=== PATIENT | female | born 1965 | race Two or more races ===

== ENCOUNTER 2023-07-27 12:55 | Inpatient (IN) | payer MEDICAID, OTHER ==
[~2023-07-27] VITALS: Ht 157.5 cm; Wt 87.6 kg
[2023-07-27] MEDS ORDERED: ASPirin 325 MG TAB PO ONE (13:15)
[2023-07-27 13:22] LABS: Basophils # (auto) 0.1 10 ^3/uL (0-0.2); Eosinophils # (auto) 0.8 10 ^3/uL (0-0.8); Eosinophils % (auto) 12.8 % (0.0-7.0); Hematocrit 37.3 % (36.0-46.0); Hemoglobin 12.5 g/dL (12.2-16.2); Lymphocytes # (auto) 1.9 10 ^3/uL (0.4-5.4); Lymphocytes % (auto) 28.6 % (10.0-50.0); Mean Corpuscular Hemoglobin 29.8 pg (28.0-32.0); Mean Corpuscular Hgb Conc. 33.6 g/dL (32.0-36.0); Mean Corpuscular Volume 88.7 fL (80.0-100.0); Monocytes # (auto) 0.4 10 ^3/uL (0-1.3); Monocytes % (auto) 6.1 % (0.0-12.0); Neutrophils # (auto) 3.3 10 ^3/uL (1.6-8.6); Neutrophils % (auto) 51.5 % (37.0-80.0); Red Cell Distribution Width 14.3 % (11.8-14.3); White Blood Cell 6.5 10^3/uL (4.4-10.8)
[2023-07-27 13:35] LABS: Alanine Aminotransferase 27 U/L (7-40); Alkaline Phosphatase 116 U/L (46-116); Anion Gap 8.2 (5-15); Aspartate Aminotransferase 12 U/L (13-40); Blood Urea Nitrogen 18 mg/dL (9-23); Calcium 9.3 mg/dL (8.5-10.1); Carbon Dioxide 21.8 mmol/L (20-30); Chloride 112 mmol/L (98-107); Glucose 108 mg/dL (74-106); Potassium 4.2 mmol/L (3.5-5.1); Sodium 142 mmol/L (136-145)
[2023-07-27 13:36] LABS: Albumin 4.4 g/dL (3.2-4.8); Bilirubin, Total 0.8 mg/dL (0.2-1.0); Total Protein 7.2 g/dL (5.7-8.2)
[2023-07-27] MEDS ORDERED: MORPHINE SULFATE INJ 2 MG/ml SYRG IV PRN (15:15)
[2023-07-27] MEDS ORDERED: NITROGLYCERIN 0.4 MG SL TAB SL PRN (15:15)
[2023-07-27] MEDS ORDERED: FURO40TA4 PO (15:33)
[2023-07-27] MEDS ORDERED: CARV6.2551 PO (15:33)
[2023-07-27] MEDS ORDERED: PANT40TA57 PO (15:33)
[2023-07-27] MEDS ORDERED: ASPI-325 PO (15:33)
[2023-07-27] MEDS ORDERED: ATOR40TA52 PO (15:33)
[2023-07-27] MEDS ORDERED: CLON0.1T PO (15:33)
[2023-07-27] MEDS ORDERED: URSO1TAB7 PO (15:33)
[2023-07-27] MEDS ORDERED: IOHEXOL 350 MG/ML 100ML IJ ONE ×2 (15:37→17:50)
[2023-07-27] MEDS ORDERED: IPRATROPIUM BROM 0.5 MG/2.5ML INH SOL NEB PRN (16:00)
[2023-07-27] MEDS ORDERED: ALBUTEROL SULF 2.5 MG/0.5ML(0.5%) NEB SOLN NEB PRN (16:00)
[2023-07-27 17:00] VITALS: PULSE 64; RESP 20; O2SAT 98
[2023-07-27] MEDS: URSODIOL 250 MG PO SCH (18:07)
[2023-07-27 18:34] VITALS: BP 156/89; PULSE 64; RESP 20; TEMP 97.9; O2SAT 98
[2023-07-27] MEDS ORDERED: PATIENTS OWN MEDICATION (Carvedilol 1 TAB) PO SCH (22:00)
[2023-07-27] MEDS: cloNIDine HCL 0.1 MG TAB PO SCH (23:26)
[2023-07-27] MEDS: CARVEDILOL 3.125 MG TAB PO SCH (23:27)
[2023-07-27] MEDS: ATORVASTATIN 20 MG TAB PO SCH (23:27)
[2023-07-27] MEDS: SACUBITRIL-VALSARTAN 24mg/26mg TAB PO SCH (23:27)
[2023-07-28] VITALS (10 sets, daily range): BP systolic 138–159; BP diastolic 80–94; PULSE 60–74; RESP 16–20; TEMP 97.5–98.6; O2SAT 92–98
[2023-07-28 02:37] LABS: Amphetamine Screen, Urine Neg (NEGATIVE); Barbiturate Scree,Urine Neg (NEGATIVE); Benzodiazephine Screen, Urine Neg (NEGATIVE); Cannabinoid Screen, Urine Neg (NEGATIVE); Cocaine Screen, Urine Neg (NEGATIVE); Opiate Scree,Urine Neg (NEGATIVE); Phencyclidine Screen, Urine Neg (NEGATIVE)
[2023-07-28 02:56] LABS: Urine Bacteria NONE SEEN /hpf (None Seen); Urine Blood Negative /uL (Negative); Urine Clarity Clear (Clear); Urine Color Colorless (Yellow); Urine Protein, UAD Negative (Negative); Urine Urobilinogen Normal (Negative); Urine WBC 8 /hpf (0 - 5); Urine pH 5.5 (5.0-8.0)
[2023-07-28 06:18] LABS: Basophils # (auto) 0.1 10 ^3/uL (0-0.2); Eosinophils # (auto) 0.8 10 ^3/uL (0-0.8); Eosinophils % (auto) 12.3 % (0.0-7.0); Hematocrit 32.9 % (36.0-46.0); Hemoglobin 11.6 g/dL (12.2-16.2); Lymphocytes # (auto) 1.9 10 ^3/uL (0.4-5.4); Lymphocytes % (auto) 30.1 % (10.0-50.0); Mean Corpuscular Hemoglobin 30.8 pg (28.0-32.0); Mean Corpuscular Hgb Conc. 35.1 g/dL (32.0-36.0); Mean Corpuscular Volume 87.7 fL (80.0-100.0); Monocytes # (auto) 0.4 10 ^3/uL (0-1.3); Monocytes % (auto) 7.2 % (0.0-12.0); Neutrophils # (auto) 3.1 10 ^3/uL (1.6-8.6); Neutrophils % (auto) 49.4 % (37.0-80.0); Red Blood Cells 3.76 10^6/uL (4.0-5.20); Red Cell Distribution Width 14.3 % (11.8-14.3); White Blood Cell 6.2 10^3/uL (4.4-10.8)
[2023-07-28 06:58] LABS: Alanine Aminotransferase 19 U/L (7-40); Albumin 3.9 g/dL (3.2-4.8); Alkaline Phosphatase 93 U/L (46-116); Aspartate Aminotransferase 12 U/L (13-40); BUN/Creatinine Ratio 15.2 (10.0-20.0); Bilirubin, Total 0.6 mg/dL (0.2-1.0); Blood Urea Nitrogen 15 mg/dL (9-23); Calcium 8.9 mg/dL (8.5-10.1); Chloride 113 mmol/L (98-107); Cholesterol 112 mg/dL (< 200); Glucose 107 mg/dL (74-106); HDL Cholesterol 34 mg/dL (40-59); LDL Cholesterol 67 mg/dL (< 100); Potassium 3.7 mmol/L (3.5-5.1); Sodium 143 mmol/L (136-145); Total Protein 6.5 g/dL (5.7-8.2); Triglycerides 109 mg/dL (< 150)
[2023-07-28 07:50] LABS: INR 1.01 (0.9-1.15); Partial Thromboplastin Time 26.4 SEC (24.5-34.5); Prothrombin Time 10.6 sec (9.3-11.8)
[2023-07-28] MEDS: URSODIOL 250 MG PO SCH ×3 (09:52→17:38)
[2023-07-28] MEDS ORDERED: PATIENTS OWN MEDICATION (Atorvastatin Calcium 1 TAB) PO SCH (10:00)
[2023-07-28] MEDS: ENOXAPARIN SOD 40 MG/0.4 ML SYRINGE SC SCH (10:00)
[2023-07-28] MEDS: FUROSEMIDE 40 MG TAB PO SCH (10:00)
[2023-07-28] MEDS: PANTOPRAZOLE 40 MG TAB PO SCH (10:00)
[2023-07-28] MEDS: ASPirin-EC 81 mg tab PO SCH (10:00)
[2023-07-28] MEDS: cloNIDine HCL 0.1 MG TAB PO SCH ×2 (11:22→22:00)
[2023-07-28] MEDS: SACUBITRIL-VALSARTAN 24mg/26mg TAB PO SCH ×2 (11:22→21:33)
[2023-07-28] MEDS: CARVEDILOL 3.125 MG TAB PO SCH ×2 (11:22→21:34)
[2023-07-28] MEDS ORDERED: cefTRIAXone 1GM/50ML D5W 50 ML IV ONE (13:30)
[2023-07-28] MEDS: ATORVASTATIN 20 MG TAB PO SCH (21:33)
[2023-07-29] VITALS (11 sets, daily range): BP systolic 130–156; BP diastolic 70–90; PULSE 60–74; RESP 16–19; TEMP 97.6–98.1; O2SAT 93–99
[2023-07-29 06:28] LABS: Basophils # (auto) 0.1 10 ^3/uL (0-0.2); Basophils % (auto) 0.8 % (0.0-2.0); Eosinophils # (auto) 0.7 10 ^3/uL (0-0.8); Hematocrit 34.6 % (36.0-46.0); Lymphocytes # (auto) 1.4 10 ^3/uL (0.4-5.4); Lymphocytes % (auto) 22.3 % (10.0-50.0); Mean Corpuscular Hemoglobin 30.5 pg (28.0-32.0); Mean Corpuscular Hgb Conc. 34.7 g/dL (32.0-36.0); Mean Corpuscular Volume 87.8 fL (80.0-100.0); Monocytes # (auto) 0.5 10 ^3/uL (0-1.3); Monocytes % (auto) 8.1 % (0.0-12.0); Neutrophils # (auto) 3.6 10 ^3/uL (1.6-8.6); Neutrophils % (auto) 57.8 % (37.0-80.0); Red Blood Cells 3.94 10^6/uL (4.0-5.20); Red Cell Distribution Width 14.1 % (11.8-14.3); White Blood Cell 6.3 10^3/uL (4.4-10.8)
[2023-07-29 06:45] LABS: Anion Gap 4.3 (5-15); Calcium 9.3 mg/dL (8.7-10.4); Carbon Dioxide 25.7 mmol/L (20-30); Chloride 110 mmol/L (98-107); Potassium 4.2 mmol/L (3.5-5.1); Sodium 140 mmol/L (136-145)
[2023-07-29 06:51] LABS: Blood Urea Nitrogen 13 mg/dL (9-23); Glucose 102 mg/dL (74-106)
[2023-07-29] MEDS: URSODIOL 250 MG PO SCH ×3 (08:00→17:54)
[2023-07-29] MEDS: SACUBITRIL-VALSARTAN 24mg/26mg TAB PO SCH ×2 (09:58→21:49)
[2023-07-29] MEDS: ASPirin-EC 81 mg tab PO SCH (09:58)
[2023-07-29] MEDS: cloNIDine HCL 0.1 MG TAB PO SCH ×2 (09:58→21:50)
[2023-07-29] MEDS: CARVEDILOL 3.125 MG TAB PO SCH ×2 (09:59→21:51)
[2023-07-29] MEDS: PANTOPRAZOLE 40 MG TAB PO SCH (09:59)
[2023-07-29] MEDS: ENOXAPARIN SOD 40 MG/0.4 ML SYRINGE SC SCH (10:00)
[2023-07-29] MEDS: FUROSEMIDE 40 MG TAB PO SCH (10:00)
[2023-07-29] MEDS: cefTRIAXone 1GM/50ML D5W 50 ML IV SCH (10:08)
[2023-07-29] MEDS ORDERED: ANGIOMAX 250 MG VIAL IV ONE (12:51)
[2023-07-29] MEDS ORDERED: fentaNYL CITRATE 100 MCG/2 ML VL ONE (12:52)
[2023-07-29] MEDS ORDERED: HEPARIN SODIUM (PORCINE) 5000 UNITS/ML 1ML VIAL ONE (12:52)
[2023-07-29] MEDS ORDERED: SODIUM CHL 0.9% 0 ML ONE (12:52)
[2023-07-29] MEDS ORDERED: VERAPAMIL 2.5MG/ML INJ 2ML VIAL IV ONE (12:52)
[2023-07-29] MEDS ORDERED: IOHEXOL 350 MG/ML 100ML IJ ONE (12:52)
[2023-07-29] MEDS ORDERED: MIDAZOLAM HCL 2MG/2ML 2ml VIAL (1mg/ml) ONE (12:52)
[2023-07-29] MEDS ORDERED: LIDOCAINE 2%HCL (LOCAL ANESTH.) INJ 20ML MDV ONE (12:53)
[2023-07-29] MEDS: ATORVASTATIN 20 MG TAB PO SCH (21:49)
[2023-07-30 05:00] VITALS: BP 158/99; PULSE 71; RESP 20; TEMP 98.3; O2SAT 96
[2023-07-30 08:00] VITALS: BP 142/91; PULSE 67; RESP 16; TEMP 97.7; O2SAT 98
[2023-07-30] MEDS: URSODIOL 250 MG PO SCH ×2 (08:00→12:00)
[2023-07-30 08:06] VITALS: PULSE 64; PULSE 67; RESP 16; O2SAT 98
[2023-07-30] MEDS: SACUBITRIL-VALSARTAN 24mg/26mg TAB PO SCH (08:57)
[2023-07-30] MEDS: ENOXAPARIN SOD 40 MG/0.4 ML SYRINGE SC SCH ×2 (08:57→09:07)
[2023-07-30] MEDS: ASPirin-EC 81 mg tab PO SCH (08:57)
[2023-07-30] MEDS: PANTOPRAZOLE 40 MG TAB PO SCH (08:57)
[2023-07-30] MEDS: CARVEDILOL 3.125 MG TAB PO SCH (08:58)
[2023-07-30] MEDS: cloNIDine HCL 0.1 MG TAB PO SCH (08:59)
[2023-07-30] MEDS: cefTRIAXone 1GM/50ML D5W 50 ML IV SCH (08:59)
[2023-07-30] MEDS: FUROSEMIDE 40 MG TAB PO SCH (08:59)
[2023-07-30 09:13] LABS: Basophils # (auto) 0 10 ^3/uL (0-0.2); Basophils % (auto) 0.7 % (0.0-2.0); Eosinophils # (auto) 0.7 10 ^3/uL (0-0.8); Eosinophils % (auto) 11.4 % (0.0-7.0); Hematocrit 34.8 % (36.0-46.0); Hemoglobin 12.1 g/dL (12.2-16.2); Lymphocytes # (auto) 1.5 10 ^3/uL (0.4-5.4); Lymphocytes % (auto) 23.1 % (10.0-50.0); Mean Corpuscular Hemoglobin 30.7 pg (28.0-32.0); Mean Corpuscular Hgb Conc. 34.9 g/dL (32.0-36.0); Mean Corpuscular Volume 88.1 fL (80.0-100.0); Monocytes # (auto) 0.4 10 ^3/uL (0-1.3); Monocytes % (auto) 6.4 % (0.0-12.0); Neutrophils # (auto) 3.7 10 ^3/uL (1.6-8.6); Neutrophils % (auto) 58.4 % (37.0-80.0); Red Blood Cells 3.95 10^6/uL (4.0-5.20); Red Cell Distribution Width 14.2 % (11.8-14.3); White Blood Cell 6.3 10^3/uL (4.4-10.8)
[2023-07-30 09:49] LABS: Chloride 109 mmol/L (98-107); Potassium 3.9 mmol/L (3.5-5.1); Sodium 138 mmol/L (136-145)
[2023-07-30 09:50] LABS: Anion Gap 7.3 (5-15); Carbon Dioxide 21.7 mmol/L (20-30)
[2023-07-30 09:55] LABS: Blood Urea Nitrogen 16 mg/dL (9-23); Glucose 150 mg/dL (74-106)
[2023-07-30 12:00] VITALS: BP 142/83; PULSE 60; RESP 16; TEMP 97.9; O2SAT 96
[2023-07-30 12:45] VITALS: BP 142/83; PULSE 60; RESP 16; TEMP 97.9; O2SAT 96
== END 2023-07-30 13:33 | disposition home or self-care (01) | DRG 190 ==
LOC: ER 12:55 → TELE 15:17 → TELE-CENTR 07-28 09:50
PROVIDERS: ADMIT Internal Medicine Pulmonary Disease; ATTEND Internal Medicine Pulmonary Disease
PROC: 4A023N7 Measurement of Cardiac Sampling and Pressure, Left Heart, Percutaneous Approach (ICD-10-PCS; principal; 2023-07-29)
PROC: B2151ZZ Fluoroscopy of Left Heart using Low Osmolar Contrast (ICD-10-PCS; 2023-07-29)
PROC: B2111ZZ Fluoroscopy of Multiple Coronary Arteries using Low Osmolar Contrast (ICD-10-PCS; 2023-07-29)
DX: I21.4 Non-ST elevation (NSTEMI) myocardial infarction (principal); I50.23 Acute on chronic systolic (congestive) heart failure; I42.8 Other cardiomyopathies; I44.7 Left bundle-branch block, unspecified; I45.10 Unspecified right bundle-branch block; E66.9 Obesity, unspecified; F15.10 Other stimulant abuse, uncomplicated; E78.5 Hyperlipidemia, unspecified; I13.0 Hypertensive heart and chronic kidney disease with heart failure and stage 1 through stage 4 chronic kidney disease, or unspecified chronic kidney disease; N18.9 Chronic kidney disease, unspecified; N39.0 Urinary tract infection, site not specified; I25.10 Atherosclerotic heart disease of native coronary artery without angina pectoris; Z95.810 Presence of automatic (implantable) cardiac defibrillator; Z86.73 Personal history of transient ischemic attack (TIA), and cerebral infarction without residual deficits; Z68.35 Body mass index [BMI] 35.0-35.9, adult; Z91.040 Latex allergy status
CPT/HCPCS: 36415; 71275; 80048; 80053; 80061; 80307; 81001; 83036; 83605; 83735; 83880; 84443; 84484; 85025; 85610; 85730; 93005; 93306; 93458; 93971; 99152; G0378; J0696; J2250

== ENCOUNTER 2023-09-13 13:04 | Emergency (ER) | payer MEDICAID ==
[~2023-09-13] VITALS: Ht 160 cm; Wt 87.8 kg
[~2023-09-13 13:04] MED LIST: ASPI-325 PO; ATOR40TA52 PO; CARV6.2551 PO; CLON0.1T PO; FURO40TA4 PO; PANT40TA57 PO; URSO1TAB7 PO
[2023-09-13 15:42] VITALS: BP 168/102; PULSE 70; RESP 18; TEMP 98.3; O2SAT 95
[2023-09-13] MEDS ORDERED: CYCL-611 PO (16:13)
[2023-09-13] MEDS ORDERED: IBUP1TAB5 PO (16:13)
[2023-09-13] MEDS ORDERED: DexAMETHasone SOD PHOS 10MG/1ML VIAL INJ IM ONE (16:15)
[2023-09-13] MEDS ORDERED: IBUPROFEN 600 MG TAB PO ONE (16:15)
== END 2023-09-13 16:20 | disposition home or self-care (01) ==
LOC: ER 13:04
DX: M54.42 Lumbago with sciatica, left side (principal); I11.0 Hypertensive heart disease with heart failure; I50.9 Heart failure, unspecified; K21.9 Gastro-esophageal reflux disease without esophagitis; E78.5 Hyperlipidemia, unspecified; Z91.040 Latex allergy status
CPT/HCPCS: 72100; 96372; 99283; J1100

== ENCOUNTER 2023-09-17 16:28 | Emergency (ER) | payer MEDICAID ==
[~2023-09-17] VITALS: Ht 160 cm; Wt 82.0 kg
[~2023-09-17 16:28] MED LIST changes: +CYCL-611 PO; +IBUP1TAB5 PO
[2023-09-17] MEDS ORDERED: cloNIDine HCL 0.1 MG TAB PO ONE (17:30)
[2023-09-17 17:52] LABS: Basophils # (auto) 0.1 10 ^3/uL (0-0.2); Basophils % (auto) 1.2 % (0.0-2.0); Eosinophils % (auto) 13.9 % (0.0-7.0); Hematocrit 39.4 % (36.0-46.0); Hemoglobin 13.5 g/dL (12.2-16.2); Lymphocytes # (auto) 2.3 10 ^3/uL (0.4-5.4); Lymphocytes % (auto) 31.7 % (10.0-50.0); Mean Corpuscular Hemoglobin 31.1 pg (28.0-32.0); Mean Corpuscular Hgb Conc. 34.2 g/dL (32.0-36.0); Mean Corpuscular Volume 90.9 fL (80.0-100.0); Monocytes # (auto) 0.6 10 ^3/uL (0-1.3); Monocytes % (auto) 8.7 % (0.0-12.0); Neutrophils # (auto) 3.3 10 ^3/uL (1.6-8.6); Neutrophils % (auto) 44.5 % (37.0-80.0); Red Blood Cells 4.34 10^6/uL (4.0-5.20); White Blood Cell 7.3 10^3/uL (4.4-10.8)
[2023-09-17 18:13] LABS: Alanine Aminotransferase 24 U/L (7-40); Albumin 4.5 g/dL (3.2-4.8); Alkaline Phosphatase 123 U/L (46-116); Anion Gap 6 (5-15); Aspartate Aminotransferase 13 U/L (13-40); BUN/Creatinine Ratio 18.7 (10.0-20.0); Bilirubin, Total 1.1 mg/dL (0.2-1.0); Blood Urea Nitrogen 20 mg/dL (9-23); Calcium 8.9 mg/dL (8.7-10.4); Carbon Dioxide 26 mmol/L (20-30); Chloride 108 mmol/L (98-107); Glucose 93 mg/dL (74-106); Potassium 3.7 mmol/L (3.5-5.1); Sodium 140 mmol/L (136-145)
[2023-09-17 18:14] LABS: Total Protein 7.7 g/dL (5.7-8.2)
[2023-09-17 18:44] LABS: Partial Thromboplastin Time 25.7 SEC (24.5-34.5); Prothrombin Time 10.5 sec (9.3-11.8)
[2023-09-17 19:23] VITALS: PULSE 80; RESP 14; O2SAT 98
[2023-09-17 20:57] VITALS: BP 151/91; PULSE 70; RESP 16; TEMP 98.7; O2SAT 98
== END 2023-09-17 18:58 | disposition short-term general hospital (02) ==
LOC: ER 16:28
DX: I60.9 Nontraumatic subarachnoid hemorrhage, unspecified (principal); I11.0 Hypertensive heart disease with heart failure; I50.9 Heart failure, unspecified; E78.5 Hyperlipidemia, unspecified; Z87.891 Personal history of nicotine dependence; Z79.82 Long term (current) use of aspirin; Z79.1 Long term (current) use of non-steroidal anti-inflammatories (NSAID); Z79.899 Other long term (current) drug therapy; Z91.040 Latex allergy status
CPT/HCPCS: 36415; 70450; 80053; 85025; 85610; 85730

== ENCOUNTER 2023-11-02 13:58 | Inpatient (IN) | payer MEDICAID ==
[~2023-11-02] VITALS: Ht 157.5 cm; Wt 87.0 kg
[2023-11-02 14:51] LABS: Basophils # (auto) 0.1 10 ^3/uL (0-0.2); Basophils % (auto) 1.1 % (0.0-2.0); Eosinophils # (auto) 0.7 10 ^3/uL (0-0.8); Eosinophils % (auto) 9.2 % (0.0-7.0); Hematocrit 43.6 % (36.0-46.0); Hemoglobin 14.5 g/dL (12.2-16.2); Lymphocytes # (auto) 2.1 10 ^3/uL (0.4-5.4); Lymphocytes % (auto) 30.1 % (10.0-50.0); Mean Corpuscular Hemoglobin 29.9 pg (28.0-32.0); Mean Corpuscular Hgb Conc. 33.2 g/dL (32.0-36.0); Mean Corpuscular Volume 90.1 fL (80.0-100.0); Monocytes # (auto) 0.6 10 ^3/uL (0-1.3); Monocytes % (auto) 8.7 % (0.0-12.0); Neutrophils # (auto) 3.6 10 ^3/uL (1.6-8.6); Neutrophils % (auto) 50.9 % (37.0-80.0); Nucleated Red Blood Cells % 0.1 %; Red Blood Cells 4.84 10^6/uL (4.0-5.20); Red Cell Distribution Width 13.5 % (11.8-14.3)
[2023-11-02 15:13] LABS: Alanine Aminotransferase 22 U/L (7-40); Albumin 4.7 g/dL (3.2-4.8); Alkaline Phosphatase 140 U/L (46-116); Anion Gap 9 (5-15); Aspartate Aminotransferase 16 U/L (13-40); BUN/Creatinine Ratio 15.6 (10.0-20.0); Bilirubin, Total 0.7 mg/dL (0.2-1.0); Blood Urea Nitrogen 17 mg/dL (9-23); Calcium 9.6 mg/dL (8.5-10.1); Carbon Dioxide 24 mmol/L (20-30); Chloride 108 mmol/L (98-107); Glucose 134 mg/dL (74-106); Potassium 3.7 mmol/L (3.5-5.1); Sodium 141 mmol/L (136-145); Total Protein 7.7 g/dL (5.7-8.2)
[2023-11-02 16:19] LABS: Urine Bacteria FEW /hpf (None Seen); Urine Blood Negative /uL (Negative); Urine Clarity Clear (Clear); Urine Color Colorless (Yellow); Urine Protein, UAD Negative (Negative); Urine Specific Gravity 1.009 (1.001-1.035); Urine Urobilinogen Normal (Negative); Urine WBC 2 /hpf (0 - 5)
[2023-11-02] MEDS ORDERED: IOHEXOL 300 MG/ML 100ML BOTTLE IJ ONE (16:27)
[2023-11-02] MEDS ORDERED: cefTRIAXone 1GM/50ML D5W 50 ML IV ONE (18:45)
[2023-11-02] MEDS ORDERED: IOHEXOL 350 MG/ML 100ML IJ ONE (20:42)
[2023-11-02] MEDS ORDERED: ONDANSETRON HCL 4 MG/2 ML VIAL IV PRN (21:30)
[2023-11-02] MEDS ORDERED: MORPHINE SULFATE INJ 2 MG/ml SYRG IV PRN (21:30)
[2023-11-02] MEDS ORDERED: ACETAMINOPHEN 325 MG TAB PO PRN (21:30)
[2023-11-02] MEDS ORDERED: DOCUSATE SOD 100 MG CAP PO PRN (21:30)
[2023-11-02] MEDS ORDERED: NITROGLYCERIN 0.4 MG SL TAB SL PRN (21:30)
[2023-11-02] MEDS ORDERED: SODIUM CHLORIDE 0.9% 1,000 ML IV ONE (22:15)
[2023-11-02] MEDS ORDERED: EMPA1TAB PO (22:25)
[2023-11-02] MEDS ORDERED: hydrALAZINE HCL 20 MG/ML VL IV PRN (22:30)
[2023-11-02] MEDS ORDERED: FAMO20TA10 PO (22:45)
[2023-11-03] VITALS (7 sets, daily range): BP systolic 110–142; BP diastolic 74–83; PULSE 60–68; RESP 18–20; TEMP 97.5–97.9; O2SAT 91–98
[2023-11-03] MEDS: AMPICILLIN & SULBACTAM SODIUM 3 GM in SODIUM CHL 0.9% 100 ML IV SCH ×4 (03:22→18:09)
[2023-11-03] MEDS: HYDROcodone-ACET 5/325MG TAB PO PRN (03:31)
[2023-11-03 06:52] LABS: Alanine Aminotransferase 19 U/L (7-40); Albumin 4.6 g/dL (3.2-4.8); Alkaline Phosphatase 130 U/L (46-116); Anion Gap 9 (5-15); Aspartate Aminotransferase 15 U/L (13-40); BUN/Creatinine Ratio 15.9 (10.0-20.0); Basophils # (auto) 0.1 10 ^3/uL (0-0.2); Basophils % (auto) 0.9 % (0.0-2.0); Blood Urea Nitrogen 22 mg/dL (9-23); Calcium 9.4 mg/dL (8.7-10.4); Carbon Dioxide 26 mmol/L (20-30); Chloride 103 mmol/L (98-107); Eosinophils # (auto) 0.7 10 ^3/uL (0-0.8); Eosinophils % (auto) 7.9 % (0.0-7.0); Glucose 117 mg/dL (74-106); Hematocrit 41.8 % (36.0-46.0); Hemoglobin 14.1 g/dL (12.2-16.2); Lymphocytes # (auto) 2.9 10 ^3/uL (0.4-5.4); Lymphocytes % (auto) 31.3 % (10.0-50.0); Mean Corpuscular Hgb Conc. 33.7 g/dL (32.0-36.0); Mean Corpuscular Volume 89.1 fL (80.0-100.0); Monocytes # (auto) 0.8 10 ^3/uL (0-1.3); Monocytes % (auto) 8.9 % (0.0-12.0); Neutrophils # (auto) 4.7 10 ^3/uL (1.6-8.6); Nucleated Red Blood Cells % 0.2 %; Potassium 3.6 mmol/L (3.5-5.1); Red Blood Cells 4.69 10^6/uL (4.0-5.20); Red Cell Distribution Width 13.6 % (11.8-14.3); Sodium 138 mmol/L (136-145); White Blood Cell 9.2 10^3/uL (4.4-10.8)
[2023-11-03 06:53] LABS: Bilirubin, Total 0.6 mg/dL (0.2-1.0); Total Protein 7.7 g/dL (5.7-8.2)
[2023-11-03] MEDS: EMPAGLIFLOZIN 10 MG TAB PO SCH (06:54)
[2023-11-03] MEDS: URSODIOL 250 MG PO SCH ×3 (08:00→18:00)
[2023-11-03] MEDS ORDERED: PATIENTS OWN MEDICATION (Atorvastatin Calcium 1 TAB) PO SCH (10:00)
[2023-11-03] MEDS ORDERED: FAMOTIDINE 20 MG TAB PO SCH (10:00)
[2023-11-03] MEDS ORDERED: PANTOPRAZOLE 40 MG TAB PO SCH (10:00)
[2023-11-03] MEDS ORDERED: PATIENTS OWN MEDICATION (Carvedilol 1 TAB) PO SCH (10:00)
[2023-11-03] MEDS ORDERED: FUROSEMIDE 40 MG TAB PO SCH (10:00)
[2023-11-03] MEDS: ASPirin-EC 81 mg tab PO SCH (10:48)
[2023-11-03] MEDS: CARVEDILOL 3.125 MG TAB PO SCH ×2 (10:49→21:40)
[2023-11-03] MEDS: FAMOTIDINE 20 MG TAB PO SCH ×2 (10:49→21:40)
[2023-11-03] MEDS: ENOXAPARIN SOD 40 MG/0.4 ML SYRINGE SC SCH (10:51)
[2023-11-03 18:53] LABS: Basophils # (auto) 0.1 10 ^3/uL (0-0.2); Basophils % (auto) 0.8 % (0.0-2.0); Eosinophils # (auto) 0.8 10 ^3/uL (0-0.8); Eosinophils % (auto) 10.4 % (0.0-7.0); Hematocrit 39.7 % (36.0-46.0); Hemoglobin 13.3 g/dL (12.2-16.2); Lymphocytes # (auto) 1.9 10 ^3/uL (0.4-5.4); Lymphocytes % (auto) 24.6 % (10.0-50.0); Mean Corpuscular Hgb Conc. 33.5 g/dL (32.0-36.0); Mean Corpuscular Volume 89.5 fL (80.0-100.0); Monocytes # (auto) 0.5 10 ^3/uL (0-1.3); Monocytes % (auto) 6.9 % (0.0-12.0); Neutrophils # (auto) 4.4 10 ^3/uL (1.6-8.6); Neutrophils % (auto) 57.3 % (37.0-80.0); Nucleated Red Blood Cells % 0.1 %; Red Blood Cells 4.44 10^6/uL (4.0-5.20); Red Cell Distribution Width 13.7 % (11.8-14.3); White Blood Cell 7.7 10^3/uL (4.4-10.8)
[2023-11-03 19:08] LABS: INR 1.04 (0.9-1.15); Partial Thromboplastin Time 29.3 SEC (24.5-34.5); Prothrombin Time 10.9 sec (9.3-11.8)
[2023-11-03 19:09] LABS: Alanine Aminotransferase 21 U/L (7-40); Albumin 4.1 g/dL (3.2-4.8); Alkaline Phosphatase 124 U/L (46-116); Anion Gap 9 (5-15); Aspartate Aminotransferase 18 U/L (13-40); BUN/Creatinine Ratio 23.8 (10.0-20.0); Bilirubin, Total 0.8 mg/dL (0.2-1.0); Blood Urea Nitrogen 29 mg/dL (9-23); Calcium 9.2 mg/dL (8.5-10.1); Carbon Dioxide 26 mmol/L (20-30); Chloride 103 mmol/L (98-107); Glucose 132 mg/dL (74-106); Potassium 3.7 mmol/L (3.5-5.1); Sodium 138 mmol/L (136-145); Total Protein 6.7 g/dL (5.7-8.2)
[2023-11-03] MEDS: ATORVASTATIN 20 MG TAB PO SCH (21:41)
[2023-11-04] VITALS (9 sets, daily range): BP systolic 114–163; BP diastolic 68–89; PULSE 60–86; RESP 14–20; TEMP 97.7–98.2; O2SAT 90–99
[2023-11-04] MEDS: AMPICILLIN & SULBACTAM SODIUM 3 GM in SODIUM CHL 0.9% 100 ML IV SCH ×6 (01:00→20:31)
[2023-11-04] MEDS: EMPAGLIFLOZIN 10 MG TAB PO SCH (06:13)
[2023-11-04 06:55] LABS: Alanine Aminotransferase 17 U/L (7-40); Alkaline Phosphatase 111 U/L (46-116); Anion Gap 10 (5-15); BUN/Creatinine Ratio 17.1 (10.0-20.0); Blood Urea Nitrogen 19 mg/dL (9-23); Calcium 9.1 mg/dL (8.5-10.1); Carbon Dioxide 24 mmol/L (20-30); Chloride 105 mmol/L (98-107); Glucose 88 mg/dL (74-106); Potassium 3.4 mmol/L (3.5-5.1); Sodium 139 mmol/L (136-145)
[2023-11-04 06:56] LABS: Albumin 3.9 g/dL (3.2-4.8); Aspartate Aminotransferase 15 U/L (13-40); Bilirubin, Total 0.8 mg/dL (0.2-1.0); Total Protein 6.6 g/dL (5.7-8.2)
[2023-11-04 07:01] LABS: Basophils # (auto) 0.1 10 ^3/uL (0-0.2); Basophils % (auto) 0.9 % (0.0-2.0); Eosinophils # (auto) 0.7 10 ^3/uL (0-0.8); Eosinophils % (auto) 11.3 % (0.0-7.0); Hematocrit 37.3 % (36.0-46.0); Hemoglobin 12.7 g/dL (12.2-16.2); Lymphocytes # (auto) 1.9 10 ^3/uL (0.4-5.4); Lymphocytes % (auto) 28.6 % (10.0-50.0); Mean Corpuscular Hemoglobin 30.3 pg (28.0-32.0); Mean Corpuscular Volume 89.2 fL (80.0-100.0); Monocytes # (auto) 0.6 10 ^3/uL (0-1.3); Monocytes % (auto) 8.6 % (0.0-12.0); Neutrophils # (auto) 3.3 10 ^3/uL (1.6-8.6); Neutrophils % (auto) 50.6 % (37.0-80.0); Nucleated Red Blood Cells % 0.1 %; Red Blood Cells 4.18 10^6/uL (4.0-5.20); Red Cell Distribution Width 13.2 % (11.8-14.3); White Blood Cell 6.5 10^3/uL (4.4-10.8)
[2023-11-04] MEDS ORDERED: SUCCINYLCHOLINE CHLORIDE 20 MG/ML 10ML VIAL IV ONE (07:24)
[2023-11-04] MEDS ORDERED: LIDOCAINE 2% JELLY 11ml (GLYDO) ONE (07:24)
[2023-11-04] MEDS ORDERED: ceFAZolin 2 GM/D5W100ml 100 ML IV ONE (07:42)
[2023-11-04] MEDS: URSODIOL 250 MG PO SCH ×3 (07:52→18:00)
[2023-11-04] MEDS ORDERED: fentaNYL CITRATE 100 MCG/2 ML VL ONE (08:07)
[2023-11-04] MEDS ORDERED: MIDAZOLAM HCL 2MG/2ML 2ml VIAL (1mg/ml) ONE (08:07)
[2023-11-04] MEDS ORDERED: MEPERIDINE HCL (25 MG/ML) 1ML VIAL ONE (08:07)
[2023-11-04] MEDS ORDERED: DexAMETHasone SOD PHOS 10MG/1ML VIAL INJ ONE (08:34)
[2023-11-04] MEDS ORDERED: ONDANSETRON HCL 4 MG/2 ML VIAL ONE (08:34)
[2023-11-04] MEDS ORDERED: ROCURONIUM 10MG/ML 10ML VIAL IV ONE (08:34)
[2023-11-04] MEDS ORDERED: SUGAMMADEX 200mg/2ml Vial (100MG/ML) IV ONE (09:07)
[2023-11-04] MEDS ORDERED: ePHEDrine SULFATE 50 MG/ML AMP IV PRN (09:30)
[2023-11-04] MEDS ORDERED: KETOROLAC TROMETH 30 MG/ML 1ML VIAL IV ONE (09:30)
[2023-11-04] MEDS ORDERED: HYDROmorphone HCL 2 MG/ML VL/or syr IV PRN (09:30)
[2023-11-04] MEDS ORDERED: ONDANSETRON HCL 4 MG/2 ML VIAL IV PRN (09:30)
[2023-11-04] MEDS ORDERED: LABETALOL HCL 5 MG/ML 4ML SYRINGE IV PRN (09:30)
[2023-11-04] MEDS ORDERED: MIDAZOLAM HCL 2MG/2ML 2ml VIAL (1mg/ml) IV PRN (09:30)
[2023-11-04] MEDS ORDERED: MORPHINE SULFATE 4 MG/ML SYR/VIAL IV PRN (09:30)
[2023-11-04] MEDS ORDERED: HYDROcodone-ACET 10/325MG TAB PO PRN (10:00)
[2023-11-04] MEDS ORDERED: HYDROcodone-ACET 5/325MG TAB PO PRN (10:00)
[2023-11-04] MEDS: ENOXAPARIN SOD 40 MG/0.4 ML SYRINGE SC SCH (10:00)
[2023-11-04] MEDS ORDERED: POTASSIUM CHL 20 Meq TABLET PO ONE (10:45)
[2023-11-04] MEDS: ASPirin-EC 81 mg tab PO SCH (12:14)
[2023-11-04] MEDS: FAMOTIDINE 20 MG TAB PO SCH (12:14)
[2023-11-04] MEDS: CARVEDILOL 3.125 MG TAB PO SCH ×2 (12:15→21:57)
[2023-11-04] MEDS: HYDROcodone-ACET 5/325MG TAB PO PRN (17:55)
[2023-11-04] MEDS: ATORVASTATIN 20 MG TAB PO SCH (21:52)
[2023-11-05] MEDS: HYDROcodone-ACET 5/325MG TAB PO PRN ×3 (01:13→10:17)
[2023-11-05] MEDS: AMPICILLIN & SULBACTAM SODIUM 3 GM in SODIUM CHL 0.9% 100 ML IV SCH (02:37)
[2023-11-05 05:00] VITALS: BP 156/86; PULSE 75; RESP 16; TEMP 98.6; O2SAT 91
[2023-11-05 06:25] LABS: Basophils # (auto) 0 10 ^3/uL (0-0.2); Basophils % (auto) 0.2 % (0.0-2.0); Eosinophils # (auto) 0 10 ^3/uL (0-0.8); Hematocrit 36.2 % (36.0-46.0); Hemoglobin 12.4 g/dL (12.2-16.2); Lymphocytes % (auto) 6.9 % (10.0-50.0); Mean Corpuscular Hemoglobin 30.8 pg (28.0-32.0); Mean Corpuscular Hgb Conc. 34.2 g/dL (32.0-36.0); Mean Corpuscular Volume 89.9 fL (80.0-100.0); Monocytes # (auto) 0.7 10 ^3/uL (0-1.3); Monocytes % (auto) 5.1 % (0.0-12.0); Neutrophils # (auto) 12.2 10 ^3/uL (1.6-8.6); Neutrophils % (auto) 87.8 % (37.0-80.0); Red Blood Cells 4.02 10^6/uL (4.0-5.20); Red Cell Distribution Width 13.1 % (11.8-14.3); White Blood Cell 13.8 10^3/uL (4.4-10.8)
[2023-11-05 06:30] LABS: Anion Gap 10 (5-15); Carbon Dioxide 23 mmol/L (20-30); Chloride 108 mmol/L (98-107); Potassium 4.2 mmol/L (3.5-5.1); Sodium 141 mmol/L (136-145)
[2023-11-05 06:31] LABS: Calcium 9.1 mg/dL (8.5-10.1)
[2023-11-05] MEDS: EMPAGLIFLOZIN 10 MG TAB PO SCH (06:33)
[2023-11-05 06:36] LABS: Blood Urea Nitrogen 13 mg/dL (9-23); Glucose 124 mg/dL (74-106)
[2023-11-05 08:00] VITALS: PULSE 70
[2023-11-05 09:00] VITALS: BP 146/62; PULSE 67; RESP 17; TEMP 98.1; O2SAT 98
[2023-11-05] MEDS ORDERED: POTASSIUM CHL 20 Meq TABLET PO SCH (10:00)
[2023-11-05] MEDS ORDERED: FUROSEMIDE 40 MG TAB PO SCH (10:00)
[2023-11-05] MEDS: ENOXAPARIN SOD 40 MG/0.4 ML SYRINGE SC SCH (10:18)
[2023-11-05] MEDS: CARVEDILOL 3.125 MG TAB PO SCH (10:18)
[2023-11-05] MEDS ORDERED: AMOX500T86 PO (10:40)
[2023-11-05] MEDS ORDERED: OXYC-962 PO ×2 (11:48)
[2023-11-05 13:00] VITALS: BP 146/84; PULSE 61; RESP 16; TEMP 98.1; O2SAT 95
[2023-11-05 15:44] VITALS: BP 140/84; PULSE 61; RESP 16; TEMP 98.1; O2SAT 95
[2023-11-05 15:58] VITALS: BP 146/62; PULSE 67; TEMP 36.7
[2023-11-05] MEDS ORDERED: PERCOT PO (16:51)
== END 2023-11-05 18:00 | disposition home or self-care (01) | DRG 513 ==
LOC: ER 13:58 → TELE 21:40 → TELE-WESTW 11-03 08:00
PROVIDERS: ADMIT Internal Medicine Pulmonary Disease; ATTEND Internal Medicine
PROC: 0UT04ZZ Resection of Right Ovary, Percutaneous Endoscopic Approach (ICD-10-PCS; 2023-11-04)
PROC: 0UT54ZZ Resection of Right Fallopian Tube, Percutaneous Endoscopic Approach (ICD-10-PCS; principal; 2023-11-04 08:00)
DX: D27.0 Benign neoplasm of right ovary (principal); N17.0 Acute kidney failure with tubular necrosis; I21.A1 Myocardial infarction type 2; Z68.35 Body mass index [BMI] 35.0-35.9, adult; I42.8 Other cardiomyopathies; E66.9 Obesity, unspecified; I50.22 Chronic systolic (congestive) heart failure; K21.9 Gastro-esophageal reflux disease without esophagitis; I11.0 Hypertensive heart disease with heart failure; M54.30 Sciatica, unspecified side; K80.20 Calculus of gallbladder without cholecystitis without obstruction; E87.6 Hypokalemia; E78.5 Hyperlipidemia, unspecified; I25.10 Atherosclerotic heart disease of native coronary artery without angina pectoris; I25.2 Old myocardial infarction; Z79.82 Long term (current) use of aspirin; Z79.899 Other long term (current) drug therapy; Z82.49 Family history of ischemic heart disease and other diseases of the circulatory system; Z98.51 Tubal ligation status; Z87.891 Personal history of nicotine dependence; Z86.73 Personal history of transient ischemic attack (TIA), and cerebral infarction without residual deficits; Z95.810 Presence of automatic (implantable) cardiac defibrillator; Z71.3 Dietary counseling and surveillance; Z91.040 Latex allergy status
CPT/HCPCS: 36415; 71045; 74177; 76705; 76856; 78226; 80048; 80053; 81001; 83605; 83690; 84484; 84702; 85025; 85379; 85610; 85730; 86850; 86900; 86901; G0378; J0330; J0696; J1100; J2250; J2405

== ENCOUNTER 2023-12-21 15:13 | Emergency (ER) | payer MEDICAID ==
[~2023-12-21] VITALS: Ht 157.5 cm; Wt 88.6 kg
[2023-12-21 15:13] VITALS: BP 159/98; PULSE 63; RESP 18; O2SAT 96
[~2023-12-21 15:13] MED LIST changes: +AMOX500T86 PO; +EMPA1TAB PO; +FAMO20TA10 PO; +NITR-87 PO; +PANT40TA2 PO; +PERCOT PO
== END 2023-12-21 17:19 | disposition left against medical advice (07) ==
LOC: ER 15:13
DX: I10 Essential (primary) hypertension (principal); Z53.21 Procedure and treatment not carried out due to patient leaving prior to being seen by health care provider